=== PATIENT | female | born 1955 | race Caucasian/White ===

== ENCOUNTER 2018-05-26 18:02 | Emergency (ER) | END 2018-05-26 19:47 | disposition home or self-care (01) ==

== ENCOUNTER 2018-12-29 18:14 | Observation (INO) | payer OTHER ==
[~2018-12-29] VITALS: Ht 154.9 cm; Wt 79.0 kg
[~2018-12-29 18:14] MED LIST: ASPI81TA52 PO; BEN25 PO; CEPH-443 PO; CYCL10TA7 PO; HYDR-3498 PO; IBUP-1561 PO; NAPR-985 PO; NYST15CR36 TOP; RANI150T35 PO
[2018-12-29 18:16] VITALS: Ht 154.9 cm; Wt 79.0 kg
[2018-12-29] MEDS ORDERED: ASPIRIN 325 MG TAB PO STA (20:08)
[2018-12-29] MEDS ORDERED: NITROGLYCERIN 2% 1 GM OINT PKT TD STA (20:08)
--- NOTE | 2018-12-29 20:13 | ERD ---
ER Documentation Chief Complaint Chief Complaint Chest pain HPI This is 63-year-old female with diabetes and high cholesterol who is here for chest pain. She says that over the past 3 days she has had worsening chest pressure or shortness of breath. The patient says that the pain is occurring when she is moving around the house and exerting herself and she will have to stop and rest and the pain goes away. No diaphoresis nausea dizziness or near syncope. Also complains of some vague pain in the left trapezius region is not associated with exertion. ROS All systems reviewed and are negative except as per history of present illness. Medications Home Meds Active Scripts Ranitidine Hcl* (Zantac*) 150 Mg Tablet, 150 MG PO BID PRN for EPIGASTRIC PAIN, #30 TAB Prov:VICKY LYON PA-C 05/26/18 Naproxen* (Naprosyn*) 500 Mg Tablet, 500 MG PO BID PRN for PAIN AND/OR INFLAMMATION, #30 TAB Prov:VICKY LYON PA-C 05/26/18 Cyclobenzaprine Hcl* (Cyclobenzaprine Hcl*) 10 Mg Tablet, 10 MG PO TID, #15 TAB Prov:VICKY LYON PA-C 05/26/18 Ibuprofen* (Motrin*) 400 Mg Tab, 400 MG PO Q6H PRN for PAIN AND OR ELEVATED TEMP, #30 TAB Prov:SVITLANA MORALESC 09/04/16 Diphenhydramine Hcl* (Benadryl*) 25 Mg Cap, 25 MG PO Q6, #14 CAP Prov:HARIKA BURR MD 03/07/16 Nystatin-Triamcinolone* (Nystatin-Triamcinolone* Cream) 15 Gm Cream.gm., 1 A PPLIC TOP BID for 10 Days, TUB Prov:HARIKA BURR MD 03/07/16 Cephalexin* (Keflex*) 500 Mg Capsule, 500 MG PO QID for 7 Days, CAP Prov:HARIKA BURR MD 03/07/16 Hydrocodone Bit-Acetaminophen* (Bath*) 5-325 Mg Tab, 1 TAB PO Q6 PRN for PAIN, #14 TAB Prov:QUE MAY PAEveliaC 11/05/15 Reported Medications Aspirin (Low Dose Aspirin) 81 Mg Tablet.dr, 81 MG PO 02/27/15 Allergies Allergies: Coded Allergies: No Known Allergy (Unverified , 02/27/15) PMhx/Soc History of Surgery: No Anesthesia Reaction: No Hx Neurological Disorder: No Hx Respiratory Disorders: No Hx Cardiac Disorders: No Hx Psychiatric Problems: No Hx Miscellaneous Medical Probl: Yes (DM) Hx Alcohol Use: No Hx Substance Use: No Hx Tobacco Use: No Smoking Status: Never smoker FmHx Family History: No coronary disease Physical Exam Vitals Vital Signs Date Temp Pulse Resp B/P (MAP) Pulse Ox O2 O2 Flow FiO2 Time Delivery Rate 12/29/18 97.0 71 20 137/70 98 Room Air 19:36 (92) 12/29/18 97.0 80 20 142/65 98 18:16 (90) Physical Exam Const: Well-developed, well-nourished Head: Atraumatic, normocephalic Eyes: Normal Conjunctiva, PERRLA, EOMI, normal sclera, no nystagmus ENT: Normal External Ears, Nose and Mouth, moist mucus membranes. Neck: Full range of motion. No meningismus, no lymphadenopathy. Resp: Clear to auscultation bilaterally, no wheezing, rhonchi, rales Cardio: Regular rate and rhythm, no murmurs, S1 S2 present Abd: Soft, non tender x 4, non distended. Normal bowel sounds, no guarding or rebound, no pulsitile abdominal masses or bruits Skin: No petechiae or rashes, no ecchymosis , no maculopapular rash Back: No midline or flank tenderness Ext: No cyanosis, or edema, FROM x 4, normal inspection, neurovascularly intact x 4 Neur: Awake and alert, STR 5/5 x 4, sensation intact x 4, no focal findings, cerebellum intact Psych: Normal Mood and Affect Result Diagram: 12/29/18194112/29/181941 Results 24 hrs Laboratory Tests Test 12/29/18 19:42 White Blood Count 10.5 10^3/ul Red Blood Count 4.82 10^6/ul Hemoglobin 13.8 g/dl Hematocrit 42.1 % Mean Corpuscular Volume 87.3 fl Mean Corpuscular Hemoglobin 28.6 pg Mean Corpuscular Hemoglobin Concent 32.8 g/dl Red Cell Distribution Width 12.6 % Platelet Count 227 10^3/UL Mean Platelet Volume 13.3 fl Immature Granulocytes % 0.200 % Neutrophils % 46.6 % Lymphocytes % 44.6 % Monocytes % 6.0 % Eosinophils % 1.7 % Basophils % 0.9 % Nucleated Red Blood Cells % 0.0 /100WBC Immature Granulocytes # 0.020 10^3/ul Neutrophils # 4.9 10^3/ul Lymphocytes # 4.7 10^3/ul Monocytes # 0.6 10^3/ul Eosinophils # 0.2 10^3/ul Basophils # 0.1 10^3/ul Nucleated Red Blood Cells # 0.0 10^3/ul Sodium Level 139 mmol/L Potassium Level 4.4 mmol/L Chloride Level 103 mmol/L Carbon Dioxide Level 28 mmol/L Anion Gap 8 Blood Urea Nitrogen 13 mg/dl Creatinine 0.51 mg/dl Est Glomerular Filtrat Rate mL/min > 60 mL/min Glucose Level 107 mg/dl Calcium Level 9.9 mg/dl Troponin I < 0.012 ng/ml Current Medications Medications Dose Sig/Paola Start Time Status Last (Trade) Ordered Route PRN Stop Time Admin Dose Reason Admin Aspirin 325 mg ONCE STAT 12/29/18 DC 12/29/18 (Aspirin) PO 20:08 20:16 12/29/18 20:10 1 inch ONCE STAT 12/29/18 DC 12/29/18 Nitroglycerin TD 20:08 20:16 12/29/18 20:10 (Nitroglyceri n 2% Oint) Procedures/MDM EKG: Rate/Rhythm: Normal Sinus Rhythm,NL intervals QRS, ST, QT: NORMAL [place], QRS, QT] Impression: NORMAL EKG MR #: [id number] DOS: 12/29/182007 Ordering MD: PEDRO ROWE DO Location: E/R Room/Bed: PROCEDURE: One view chest radiograph. CLINICAL INDICATION: Chest pain. TECHNIQUE: An AP view of the chest was obtained. COMPARISON: None FINDINGS: Mediastinum: There is calcification of the wall of the thoracic aorta. Heart size: Normal Pulmonary vasculature: No visible engorgement. Lungs: Clear. Lung volumes are extremely low Costophrenic sulci: Clear. Bony structures: Grossly unremarkable for age. IMPRESSION: 1. Atherosclerosis of the thoracic aorta. 2. Otherwise, radiographically unremarkable expiratory phase chest. RPTAT:AAJJ Physician Oneida Date Time Electronically viewed and signed by Danya Murray Physician on 12/29/2018 21:11 GW/ CC: PEDRO ROWE DO [id number] Cardiac Admit MDM: Patient's symptoms are concerning for cardiac cause will require inpatient workup and continuous monitoring. Further w/u for ischemia, arrhythmia, PE or dissection will be deferred to the inpatient team. Departure Diagnosis: Primary Impression: Chest pain Chest pain type: unspecified Qualified Codes: R07.9 - Chest pain, unsp ecified Condition: Stable PEDRO ROWE DO Dec 29, 2018 20:13
[2018-12-29] MEDS ORDERED: BISACODYL (EC) 5 MG TAB PO PRN (23:00)
[2018-12-29] MEDS ORDERED: DOCUSATE SODIUM 100 MG CAP PO PRN (23:00)
[2018-12-29] MEDS ORDERED: MAGNESIUM HYDROXIDE 30ML CUP PO PRN (23:00)
[2018-12-29] MEDS ORDERED: ACETAMINOPHEN 325 MG TAB PO PRN ×2 (23:00)
[2018-12-29] MEDS ORDERED: NACL 0.9% 3 ML SYG IV SCH (23:00)
[2018-12-29] MEDS ORDERED: HYDROCODONE/APAP (5/325) TAB PO PRN (23:00)
[2018-12-29] MEDS ORDERED: ZOLPIDEM 5 MG TAB PO PRN (23:00)
[2018-12-29] MEDS ORDERED: ONDANSETRON 4 MG INJ IV PRN ×2 (23:00)
[2018-12-29 23:21] VITALS: PULSE 69
[2018-12-30] VITALS (10 sets, daily range): BP systolic 103–121; BP diastolic 56–63; PULSE 63–83; RESP 16–20
[2018-12-30] MEDS ORDERED: PANTOPRAZOLE 40 MG INJ IV SCH (06:00)
[2018-12-30] MEDS: ASPIRIN (EC) 81 MG TAB PO SCH (08:17)
[2018-12-30] MEDS: ENOXAPARIN 40 MG/0.4 ML SYG SC SCH (08:30)
[2018-12-30] MEDS ORDERED: NITROGLYCERIN (SL) 0.4 MG TAB SL PRN (13:30)
--- NOTE | 2018-12-30 14:05 | CONS ---
DATE OF ADMISSION: 12/29/2018 DATE OF CONSULTATION: 12/30/2018 REASON FOR CONSULTATION: Chest pain, assess for acute coronary syndrome. REQUESTING PHYSICIAN: Bart Alberto MD HISTORY OF PRESENT ILLNESS: Ms. Browning is a 63-year-old female with a history of dyslipidemia who pr esented with complaints of substernal chest pain occurring over the last 3 days. Patient states that the chest pain is there at rest and is worse with exerting herself. Describes it as a stabbing sens ation located under her left breast with some radiation towards her back. The patient subsequently p resented to the Emergency Department where upon arrival, temperature of 97, blood pressure of 142/65, pulse 80, respiratory rate 20, saturating 98%. The patient's labs showed white count 10.5, hemoglob in 13.8, platelet count of 227,000. Sodium 139, potassium 4.4, creatinine 0.5, BUN 13. Troponin neg ative. LDL 133, HDL 60. The patient underwent a chest x-ray revealing atherosclerosis of the thorac ic aorta. The patient's electrocardiogram revealed a sinus rhythm at a rate of 70 with nonspecific S T-T abnormalities. The patient was admitted to the floor and since admit to the floor, she has had a negative troponin x3, ruling her out for an acute myocardial infarction. The patient denies ongoing chest pain. PAST MEDICAL HISTORY: As above in HPI. MEDICATIONS CURRENTLY IN HOSPITAL: 1. Aspirin 81 mg a day. 2. Lovenox subcutaneous daily. 3. Protonix 40 mg IV daily. 4. Zofran p.r.n. 5. Tylenol p.r.n. 6. Chidester p.r.n. 7. Colace p.r.n. 8. Ambien p.r.n. ALLERGIES: NO KNOWN DRUG ALLERGIES. SOCIAL HISTORY: No current tobacco, EtOH, or illicit drug use. FAMILY HISTORY: No sudden cardiac or early CAD. REVIEW OF SYSTEMS: As above in HPI. CONSTITUTIONAL: No fevers or chills. PULMONARY: No current shortness of breath. CARDIOVASCULAR: Intermittent chest pain. GASTROINTESTINAL: No vomiting. GENITOURINARY: No hematuria. MUSCULOSKELETAL: Degenerative joint disease. PSYCHIATRIC: The patient has depression. NEUROLOGIC: No documented history of CVA. PHYSICAL EXAMINATION VITAL SIGNS: Temperature of 97, blood pressure most recently 114/60, pulse 78, respiratory rate 16, saturating 98%. GENERAL: The patient is alert, awake. No acute distress. NECK: JVP approximately 8 to 9 cm of water. CHEST: Fair air movement throughout. HEART: Regular rate and rhythm. Normal S1 and S2. Grade I/ systolic murmur. Nondisplaced PMI. ABDOMEN: Positive bowel sounds. Soft. EXTREMITIES: No significant pitting edema, 1+ pulses bilateral posterior tibial. LABORATORY DATA: As above in HPI. Most recent from today: Sodium 140, potassium 3.8, creatinine 0. 5, BUN 10. LDL 133, HDL 60. White blood cell count 9.5, hemoglobin 12.3, platelet count 191,000. IMAGING STUDIES: As above in HPI. No further images for review at this time. ELECTROCARDIOGRAMS: As above in HPI. No further electrocardiograms for my review at this time. IMPRESSION: 1. Chest pain. Assess for acute coronary syndrome with negative troponins x3. Somewhat atypical fo r cardiac etiology at this time. 2. Dyslipidemia. Elevated low-density lipoprotein (LDL). 3. Abnormal electrocardiogram with to assess for acute coronary syndrome. RECOMMENDATIONS: 1. At this time, we would maintain patient on telemetry monitoring to follow rhythm and rate control closely. 2. We will check repeat EKG today to see if there are any significant changes since rule out. 3. We will follow patient's 2D echocardiogram exam for assessment of ejection fraction, wall motion, and to rule out any major valve abnormalities. 4. We will continue the patient's aspirin for prophylaxis against cardiovascular events, and we will resume the patient's baseline statin and likely increase dose. 5. If the patient continues to remain pain-free, the patient's likely reasonable for outpatient stre ss testing. If the patient continues to have chest pain, can schedule patient for a stress testing t o take place in the morning. Thank you for allowing me to take part in the care of this patient. I will continue to follow very c losely with you. Dictated By: COCO LY/LARS Conf#: [id number] DID#: [id number] CC: BART ALBERTO MD;*EndCC*
--- NOTE | 2018-12-30 14:20 | RADRPT ---
Echocardiogram Report Patient Name: JON SALMONTPatient ID: [id number] : 1955 (63y 7m)Study Date: 12/30/2018 7:20:09 AM Gender: FAccession #: [id number] Tech: AlyciaJazmin Wan [facility] Location: [facility] Ref.Physician: ELMO ALBERTO Height(Cm): BSA: Weight(Kg): Quality: AdequateAccount #: Procedures: Echocardiographic Report: Transthoracic echocardiogram with complete 2D, M-Mode, and doppler examination. Indications: Cerebrovascular Accident. Measurements: 2D/M Mode Doppler Measurement Value Normal Range Measurement Value Normal Range LVIDd 2D 3.8 [ 3.8 - 5.2 ] cm AV Peak Chalino 1.4 [ 100.0 - 170.0 ] cm/sec LVIDs 2D 2.5 [ 2.2 - 3.5 ] cm AV Peak PG 8.0 [ 2.0 - 9.0 ] mmHg LVPWd 2D 1.0 [ 0.6 - 0.9 ] cm LVOT Peak Chalino 0.8 [ 70.0 - 110.0 ] cm/sec IVSd 2D 0.9 [ 0.6 - 0.9 ] cm LVOT Peak PG 3.0 [ 2.0 - 6.0 ] mmHg AoR Diam 2D 3.0 [ 2.3 - 3.1 ] cm MV E Peak Chalino 0.6 [ 60.0 - 130.0 ] cm/sec EDV 2D 63.5 [ 46.0 - 106.0 ] ml MV A Peak Chalino 0.7 [ 100.0 - 120.0 ] cm/sec ESV 2D 21.7 [ 14.0 - 42.0 ] ml MV E/A 0.9 [ 0.8 - 1.5 ] ratio EF 2D 65.8 [ 54.0 - 74.0 ] percent MV Decel Time 246 [ 104 - 258 ] msec LA Dimen 2D 2.6 [ 2.7 - 3.8 ] cm Lat E` Chalino 0.1 [ 10.0 - 15.0 ] cm/sec Lateral E/E` 7.6 [ 1.0 - 2.0 ] ratio MV E/A 0.9 [ 0.8 - 1.5 ] ratio TR Peak Chalino 2.0 [ 100.0 - 280.0 ] cm/sec TR Peak PG 15.0 mmHg RVSP 18.0 [ 10.0 - 36.0 ] mmHg RA Pressure 3.0 mmHg Findings: Left Ventricle: Normal left ventricular systolic function. Normal left ventricular cavity size. Normal left ventricular wall thickness. Ejection fraction is visually estimated at 55 %. Tissue Doppler/Mitral Doppler indices are consistent with impaired relaxation (Stage I diastolic dysfunction). Right Ventricle: Normal right ventricular size. Normal right ventricular systolic function. Left Atrium: The left atrium is normal in size. Right Atrium: The right atrium is normal in size. Mitral Valve: Normal appearance and function of the mitral valve with trace physiologic regurgitation. Aortic Valve: No significant aortic stenosis or insufficiency. Aortic cusps appear mildly calcified. Tricuspid Valve: Normal appearance of the tricuspid valve. Estimated peak PA systolic pressure 18 mmHg. There is trace tricuspid regurgitation. Pulmonic Valve: Normal pulmonic valve appearance. Pericardium: Normal pericardium with no significant pericardial effusion. Aorta: Normal aortic root. IVC: Normal size and normal respiratory collapse consistent with normal right atrial pressure. Conclusions: Normal left ventricular systolic function. Normal left ventricular cavity size. Normal left ventricular wall thickness. Ejection fraction is visually estimated at 55 %. Tissue Doppler/Mitral Doppler indices are consistent with impaired relaxation (Stage I diastolic dysfunction). Normal appearance and function of the mitral valve with trace physiologic regurgitation. Normal appearance of the tricuspid valve. Estimated peak PA systolic pressure 18 mmHg. There is trace tricuspid regurgitation. Electronically Signed By: Mino Martinez 2018-12-30 14:18:45 PST
--- NOTE | 2018-12-30 15:24 | QN ---
Documentation Comment seen and exmined SUKH HUBER MD Dec 30, 2018 15:24
--- NOTE | 2018-12-30 16:11 | HP ---
DATE OF ADMISSION: 12/29/2018 REASON FOR ADMISSION: Chest pain. HISTORY OF PRESENTING ILLNESS: This is a 63-year-old female with a past medical history of dyslipide denisse, presented to emergency department complaining of substernal chest pain occurring over the past 1 week. The patient said that she has been having pain under her left breast going to the back for th e last 1 week, worsening with exertion described as burning sensation located in the breast with radi ation towards the back. The patient said that when she has been cleaning or doing any household work , the pain is getting worse. The patient was worried and came to the emergency department. Denies a ny shortness of breath, any dizziness, any orthopnea, PND, lower extremity edema. On arrival to ED, vital signs showed blood pressure 111/61, afebrile, heart rate 74, saturating 97%. BMP within normal limit. Troponin less than 0.012. Chest x-ray was negative. The patient's EKG did not show any acu te ST or T-wave changes and was admitted for further management. PAST MEDICAL HISTORY: 1. Prediabetes. 2. Hypercholesterolemia. ALLERGIES: NONE. PAST SURGICAL HISTORY: None. MEDICATIONS TAKING AT HOME: 1. Aspirin 81. 2. Ibuprofen p.r.n. pain. 3. Ranitidine. 4. Statin. SOCIAL HISTORY: Denies any history of smoking, alcohol or any drug use. Currently lives at home wit h family. FAMILY HISTORY: Significant for heart attack in her mother. REVIEW OF SYSTEMS: The patient complained of chest pain under her left breast going to the back. De nied any abdominal pain, nausea, vomiting, diarrhea. Denied any headache, any blurry vision. Denies any shortness of breath, any orthopnea, PND, lower extremity edema. PHYSICAL EXAMINATION: VITAL SIGNS: Currently, blood pressure 121/63, afebrile, heart rate 82, respirations 20, saturating 96% on room air. GENERAL: The patient is awake, alert, oriented, does not appear to be in any acute distress. HEENT: Pupils are equal, round, reactive to light. NECK: Supple. No JVD. HEART: Regular rate and rhythm. No murmur, rub or gallop. ABDOMEN: Soft, nontender, nondistended, positive normoactive bowel sounds. EXTREMITIES: No clubbing, cyanosis or edema. LABORATORY DATA: Show sodium 140, potassium 3.8, creatinine 1.5, BUN of 10. LDL of 133. White bloo d cell count of 9.5, hemoglobin 12.3, platelet count of 191,000. IMAGING: Chest x-ray is negative. ASSESSMENT AND PLAN: This is a 63-year-old female who presented with: 1. Chest pain radiating to the back. Rule out for ischemia; however is currently atypical. 2. History of dyslipidemia. 3. Prediabetes. 4. Obesity. PLAN: At this period of time, the patient is admitted to telemetry. The patient is currently on asp irin and statin. Serial troponins have been done which are negative. Echo has been pending. Cardio logy has been consulted. Rest of the treatment will depend on the patient's hospitalization course. Dictated By: SUKH HOWELL/LARS Conf#: [id number] DID#: [id number] CC: ELMO ALBERTO MD;*End*
[2018-12-30] MEDS ORDERED: ATORVASTATIN 20 MG TAB PO SCH (21:00)
[2018-12-30] MEDS ORDERED: LORAZEPAM 0.5 MG TAB PO ONE (21:30)
[2018-12-31] VITALS: BP 106/57; PULSE 67; PULSE 80; RESP 19
[2018-12-31 04:00] VITALS: BP 103/53; PULSE 67; PULSE 70; RESP 18
[2018-12-31] MEDS ORDERED: PANTOPRAZOLE (EC) 40 MG TAB PO SCH (06:00)
[2018-12-31 08:00] VITALS: PULSE 66
[2018-12-31 08:02] VITALS: BP 107/51; PULSE 68; RESP 20
[2018-12-31] MEDS: ASPIRIN (EC) 81 MG TAB PO SCH (08:22)
[2018-12-31] MEDS: ENOXAPARIN 40 MG/0.4 ML SYG SC SCH (08:25)
[2018-12-31] MEDS ORDERED: REGADENOSON 0.4 MG/5 ML SYG ONE (11:00)
--- NOTE | 2018-12-31 11:46 | CONS ---
Assessment/Plan Assessment/Plan Hospital Course (Demo Recall) IMPRESSION: 1. Chest pain. Assess for acute coronary syndrome with negative troponins x3. Somewhat atypical for cardiac etiology at this time. 2. Dyslipidemia. Elevated low-density lipoprotein (LDL). 3. Abnormal electrocardiogram with assess for acute coronary syndrome. Recc: -Tele -Continue asa/statin -Lexiscan stres test today and if no ischemia then ok for d/c planning from cardiac standpoint Consultation Date/Type/Reason Admit Date/Time Dec 29, 2018 at 22:33 Initial Consult Date 12/30/18 Type of Consult Cardiology Reason for Consultation chest pain Requesting Provider: SUKH HUBRE MD Date/Time of Note DATE: 12/31/18 TIME: 11:42 Exam/Review of Systems Vital Signs Vitals Vital Signs Date Temp Pulse Resp B/P (MAP) Pulse Ox O2 O2 Flow FiO2 Time Delivery Rate 12/31/18 98.1 68 20 107/51 95 Room Air 08:02 (69) Intake and Output 12/30/18 12/30/18 12/31/18 1515:00 23:00 07:00 IntakeIntake Total 960 ml 800 ml OutputOutput Total 1 ml BalanceBalance 960 ml 799 ml Exam Exam Review of Systems: CONSTITUTIONAL: No fevers, chills. PULMONARY: No sob CARDIOVASCULAR: No chest pain/palpitations GASTROINTESTINAL: No nausea/vomiting. GENITOURINARY: No hematuria/dysuria. MUSCULOSKELETAL: No myagias/arthalgias. PSYCHIATRIC: The patient denies depression. NEUROLOGIC: No weakness Constitutional: alert Psych: no complaints Head: normocephalic ENMT: mucosa pink and moist Neck: supple, jvd Respiratory: diminished breath sounds Cardiovascular: regular rate and rhythm Gastrointestinal: soft, non-tender Musculoskeletal: muscle tone (normal) Extremities: edema (none) Neurological: other (No focal deficits) Labs Result Diagram: 12/30/18 0459 12/30/18 0459 Results 24hrs Laboratory Tests Test 12/31/18 06:17 D-Dimer 321.26 D-Dimer Comment Lipase 84 Medications Medications Current Medications Aspirin (Halfprin) 81 mg DAILY PO Last administered on 12/31/18at 08:22; Admin Dose 81 MG; Start 12/30/18 at 09:00 IV Flush (NS 3 ml) 3 ml PER PROTOCOL IV ; Start 12/29/18 at 23:00 Ondansetron HCl (Zofran Inj) 4 mg Q6H PRN IV NAUSEA/VOMITING; Start 12/29/18 at 23:00 Acetaminophen (Tylenol Tab) 650 mg Q6H PRN PO .PAIN 1-3 OR TEMP; Start 12/29/18 at 23:00 Acetaminophen/ Hydrocodone Bitart ([place] (5/325)) 1 tab Q6H PRN PO .MOD PAIN 4- 6; Start 12/29/18 at 23:00 Docusate Sodium (Colace) 100 mg Q12H PRN PO .CONSTIPATION; Start 12/29/18 at 23:00 Magnesium Hydroxide (Milk Of Mag) 30 ml DAILY PRN PO .CONSTIPATION; Start 12/29/18 at 23:00 Bisacodyl (Dulcolax) 5 mg DAILY PRN PO .CONSTIPATION; Start 12/29/18 at 23:00 Zolpidem Tartrate (Ambien) 5 mg QHS PRN PO .INSOMNIA; Start 12/29/18 at 23:00 Enoxaparin Sodium (Lovenox) 40 mg DAILY SC Last administered on 12/31/18at 08:25; Admin Dose 40 MG; Start 12/30/18 at 09:00 Atorvastatin Calcium (Lipitor) 20 mg HS PO Last administered on 12/30/18at 21:15; Admin Dose 20 MG; Start 12/30/18 at 21:00 Nitroglycerin (Nitroglycerin (Sl Tab) 0.4 Mg) 1 tab Q5M PRN SL ANGINA; Start 12/30/18 at 13:30 Pantoprazole (Protonix Tab) 40 mg DAILY@06 PO Last administered on 12/31/18at 06:48; Admin Dose 40 MG; Start 12/31/18 at 06:00 COCO MALLOY Dec 31, 2018 11:46
[2018-12-31 12:09] VITALS: PULSE 84
--- NOTE | 2018-12-31 12:22 | CARRPT ---
DATE OF PROCEDURE: 12/31/2018 TYPE OF PROCEDURE: Lexiscan Cardiolite stress test electrocardiogram portion. BASELINE VITAL SIGNS AND ELECTROCARDIOGRAM: Pulse of 79, blood pressure 130/71. Electrocardiogram r eveals normal sinus rhythm, rate of 79, normal axis, normal intervals, inferior T-wave inversion. PROCEDURE IN DETAILS: The patient underwent standard Lexiscan infusion protocol over 10 seconds foll owed by radiolabeled tracer. The patient's test was stopped due to completion of protocol. Maximal achieved blood pressure during the test was 136/66. Maximum heart rate during the test was 117. ELECTROCARDIOGRAM FINDINGS: The patient did not develop any new Lexiscan-induced ST or T-wave change s from baseline abnormalities. No documented PVCs. SYMPTOMS: The patient had complaints of chest pain, shortness breath during stress test that resolve d in recovery. IMPRESSION: 1. No Lexiscan-induced ST or T-wave changes from baseline abnormalities diagnostic for ischemia. 2. Complaints of shortness of breath during stress test that resolved in recovery. 3. No documented premature ventricular contractions during stress testing. 4. Report of nuclear images to follow in separate dictation. Dictated By: COCO LY/LARS Conf#: [id number] DID#: [id number] CC: ELMO ALBERTO MD; SUKH HUBER;*[facility]*
--- NOTE | 2018-12-31 12:30 | PN ---
Date/Time of Note Date/Time of Note DATE: 12/31/18 TIME: 12:29 Assessment/Plan VTE Prophylaxis Risk score (from Ns)>0 risk: 4 SCD applied (from Ns): Yes SCD contraindicated: low risk/ambulating Pharmacological prophylaxis: LMWH Lines/Catheters IV [facility]from [facility] [place] Urinary Cath still in place: No Assessment/Plan Hospital Course 1. Chest pain radiating to the back. Rule out for ischemia; however is currently atypical. 2. History of dyslipidemia. 3. Prediabetes. 4. Obesity. Assessment/Plan - telemetry. -c/w aspirin and statin. -Serial troponins have been done which are negative. - Echo 55 %. -stress test negative -Cardiology has been consulted. Result Diagram: 12/30/1845812/30/18458 Results 24hrs Laboratory Tests Test 12/31/18 06:17 D-Dimer 321.26 D-Dimer Comment Lipase 84 Subjective 24 Hr Interval Summary Respiratory: no complaints Cardiovascular: no complaints, chest pain; No edema, No lightheadedness, No orthopenea, No palpitations, No paroxysmal nocturnal dyspnea, No other Gastrointestinal: no complaints Genitourinary: no complaints Musculoskeletal: back pain (T3-T4 trigger point) Psychological: other (insomnia) Exam/Review of Systems Exam Vitals Vital Signs Date Temp Pulse Resp B/P (MAP) Pulse Ox O2 O2 Flow FiO2 Time Delivery Rate 12/31/18 84 12:09 12/31/18 98.1 20 107/51 95 Room Air 08:02 (69) Intake and Output 12/30/18 12/30/18 12/31/18 1515:00 23:00 07:00 IntakeIntake Total 960 ml 800 ml OutputOutput Total 1 ml BalanceBalance 960 ml 799 ml Constitutional: alert, oriented Cardiovascular: regular rate and rhythm Gastrointestinal: soft Musculoskeletal: joint tenderness (T3-T4) Results Results 24hrs Laboratory Tests Test 12/31/18 06:17 D-Dimer 321.26 D-Dimer Comment Lipase 84 Medications Medication Current Medications Aspirin (Halfprin) 81 mg DAILY PO Last administered on 12/31/18at 08:22; Admin Dose 81 MG; Start 12/30/18 at 09:00 IV Flush (NS 3 ml) 3 ml PER PROTOCOL IV ; Start 12/29/18 at 23:00 Ondansetron HCl (Zofran Inj) 4 mg Q6H PRN IV NAUSEA/VOMITING; Start 12/29/18 at 23:00 Acetaminophen (Tylenol Tab) 650 mg Q6H PRN PO .PAIN 1-3 OR TEMP; Start 12/29/18 at 23:00 Acetaminophen/ Hydrocodone Bitart ([place] (5/325)) 1 tab Q6H PRN PO .MOD PAIN 4- 6; Start 12/29/18 at 23:00 Docusate Sodium (Colace) 100 mg Q12H PRN PO .CONSTIPATION; Start 12/29/18 at 23:00 Magnesium Hydroxide (Milk Of Mag) 30 ml DAILY PRN PO .CONSTIPATION; Start 12/29/18 at 23:00 Bisacodyl (Dulcolax) 5 mg DAILY PRN PO .CONSTIPATION; Start 12/29/18 at 23:00 Zolpidem Tartrate (Ambien) 5 mg QHS PRN PO .INSOMNIA; Start 12/29/18 at 23:00 Enoxaparin Sodium (Lovenox) 40 mg DAILY SC Last administered on 12/31/18at 08:25; Admin Dose 40 MG; Start 12/30/18 at 09:00 Atorvastatin Calcium (Lipitor) 20 mg HS PO Last administered on 12/30/18at 21:15; Admin Dose 20 MG; Start 12/30/18 at 21:00 Nitroglycerin (Nitroglycerin (Sl Tab) 0.4 Mg) 1 tab Q5M PRN SL ANGINA; Start 12/30/18 at 13:30 Pantoprazole (Protonix Tab) 40 mg DAILY@06 PO Last administered on 12/31/18at 06:48; Admin Dose 40 MG; Start 12/31/18 at 06:00 JONO PLAZA Dec 31, 2018 12:30
--- NOTE | 2018-12-31 12:58 | PDOCDIS ---
Discharge Instructions DIAGNOSIS Discharge Diagnosis costochondritis CONDITION [id number] Patient Condition: [id number] Stable HOME CARE INSTRUCTIONS: [id number] Diet Instructions: [id number] y Rest between Activity Avoid heavy lifting FOLLOW UP/APPOINTMENTS Follow-up Plan PCP 1 week JONO PLAZA Dec 31, 2018 12:58
[2018-12-31] MEDS ORDERED: ATOR20TA65 PO (13:01)
[2018-12-31] MEDS ORDERED: MELA1TAB9 PO (13:01)
[2018-12-31] MEDS ORDERED: NITR0.4T32 SL (13:01)
--- NOTE | 2018-12-31 13:02 | DS ---
Date/Time of Note Date/Time of Note DATE: 12/31/18 TIME: 13:02 Discharge Summary Admission/Discharge Info Admit Date/Time Dec 29, 2018 at 22:33 Discharge Date/Time Discharge Diagnosis costochondritis Patient Condition: Stable Consults DR Martinez, cardiology Procedures Stress test Hospital Course This is a 63-year-old female with a past medical history of dyslipidemia and obesity presented to emergency department complaining of substernal chest pain occurring over the past 1 week. The patient said that she has been having pain under her left breast going to the back for the last 1 week, worsening with exertion described as burning sensation located in the breast with radiation t owards the back. The patient said that when she has been cleaning or doing any household work, the pain is getting worse. The patient was worried and came to the emergency department. Denies any shortness of breath, any dizziness, any orthopnea, PND, lower extremity edema. On arrival to ED, vital signs showed blood pressure 111/61, afebrile, heart rate 74, saturating 97%. BMP within normal limit. Troponin less than 0.012. Chest x-ray was negative. The patient's EKG did not show any acute ST or T-wave changes and was admitted for further management. 1. Chest pain radiating to the back. Rule out for ischemia; however is cur rently atypical. 2. History of dyslipidemia. 3. Prediabetes. 4. Obesity. 5. Insomnia During hospitalization pt was on telemetry monitoring that did not show any ischemic changes. Dr Martinez was her doweler and he had stress test done. It was negative. Pt reported that she still have some chest pain and reported it worse upon movement. She was taking NSAID with no relief and during her short hospitalization still reported left chest wall pain with irradiation to het back. Pt was recommended to finish a week of NSAID and f/up with PCP regarding her costochondritis. Pt was explained that she might need a CT scan of her thoracic area later to determine if she has any degenerative disk disease. Outpatient CT scan is recommended if needed. Pt insomnia might be related to pain syndrome or other factors. There was Melatonine offered to take q HS and if pt need stronger medications her PCP would determine that. Home Meds Active Scripts Melatonin-Pyridoxine Hcl (Melatonin) 1-10 Mg Tablet, 1 TAB PO HS for 14 Days, TAB Prov:MEZENTSEVA,JONO 12/31/18 Nitroglycerin* (Nitroglycerin* SL) 0.4 Mg Tab.subl, 1 TAB SL Q5M PRN for ANGINA for 30 Days Prov:JONO PLAZA 12/31/18 Atorvastatin Calcium (Atorvastatin Calcium) 20 Mg Tablet, 20 MG PO HS for 30 Days, TAB Prov:JONO PLAZA 12/31/18 Ranitidine Hcl* (Zantac*) 150 Mg Tablet, 150 MG PO BID PRN for EPIGASTRIC PAIN, #30 TAB Prov:VICKY LYON PA-C 05/26/18 Cyclobenzaprine Hcl* (Cyclobenzaprine Hcl*) 10 Mg Tablet, 10 MG PO TID, #15 TAB Prov:VICKY LYON PA-C 05/26/18 Ibuprofen* (Motrin*) 400 Mg Tab, 400 MG PO Q6H PRN for PAIN AND OR ELEVATED TEMP, #30 TAB Prov:SVITLANA MORALES PA-C 09/04/16 Nystatin-Triamcinolone* (Nystatin-Triamcinolone* Cream) 15 Gm Cream.gm., 1 APPLIC TOP BID for 10 Days, TUB Prov:HARIKA BURR MD 03/07/16 Hydrocodone Bit-Acetaminophen* ([place]*) 5-325 Mg Tab, 1 TAB PO Q6 PRN for PAIN, #14 TAB Prov:QUE MAY PA-C 11/05/15 Reported Medications Aspirin (Low Dose Aspirin) 81 Mg Tablet.dr, 81 MG PO 02/27/15 Discontinued Scripts Naproxen* (Naprosyn*) 500 Mg Tablet, 500 MG PO BID PRN for PAIN AND/OR INFLAMMATION, #30 TAB Prov:VICKY LYON PA-C 05/26/18 Diphenhydramine Hcl* (Benadryl*) 25 Mg Cap, 25 MG PO Q6, #14 CAP Prov:HARIKA BURR MD 03/07/16 Cephalexin* (Keflex*) 500 Mg Capsule, 500 MG PO QID for 7 Days, CAP Prov:HARIKA BURR MD 03/07/16 Follow-up Plan PCP 1 week Primary Care Provider Not On Staff Doctor Time spent on discharge: < 30 minutes Pending Labs Laboratory Tests Test 12/31/18 06:17 D-Dimer 321.26 ng/ml (<460) D-Dimer Comment Lipase 84 U/L (23-300) OJNO PLAZA Dec 31, 2018 13:02
== END 2018-12-31 14:14 | disposition home or self-care (01) ==
LOC: E/R 18:14 → TEL 22:33
PROVIDERS: ADMIT Internal Medicine Nephrology; ATTEND Internal Medicine Nephrology
DX: M94.0 Chondrocostal junction syndrome [Tietze] (principal); E11.9 Type 2 diabetes mellitus without complications; E78.00 Pure hypercholesterolemia, unspecified; E78.5 Hyperlipidemia, unspecified; R73.03 Prediabetes; E66.9 Obesity, unspecified; Z68.32 Body mass index [BMI] 32.0-32.9, adult; G47.00 Insomnia, unspecified; Z79.82 Long term (current) use of aspirin
CPT/HCPCS: 36415; 71045; 78452; 80048; 80053; 80061; 82550; 82553; 83690; 84484; 85025; 85378; 93005; 93017; 93306; A9500; A9505; C9113; J1650; J2785; Z7500; Z7502; Z7610; G0378